=== PATIENT | male | born 2000 | race Native Hawaiian/Other Pacific Islander ===

== ENCOUNTER 2019-04-04 07:39 | Day surgery (SDC) | payer BC | END 2019-04-04 11:22 | disposition home or self-care (01) | LOC: OR 07:39 | PROC: 0DB68ZZ Excision of Stomach, Via Natural or Artificial Opening Endoscopic (ICD-10-PCS; principal; 2019-04-04) | DX: K31.7 Polyp of stomach and duodenum (principal); K22.6 Gastro-esophageal laceration-hemorrhage syndrome; K44.9 Diaphragmatic hernia without obstruction or gangrene; K21.9 Gastro-esophageal reflux disease without esophagitis | CPT/HCPCS: J2001; J2250; J2405; J2704; J2765 ==